=== PATIENT | male | born 1995 | race Caucasian/White ===

== ENCOUNTER 2023-07-06 14:55 | Emergency (ER) | payer OTHER, SELFPAY ==
--- NOTE | ~2023-07-06 | XR_ITS ---
EXAM: XR abdomen/kub 1V DATE: 07/06/2023 16:07 HISTORY: 4mm stone R . COMPARISON: CT abdomen pelvis same date. FINDINGS: Clear lung bases. Normal bowel gas pattern. No organomegaly. Known 4 mm distal right urete ral stone is possibly visualized, projecting over the right side of the sacrum. Delayed right nephrog porter. Mild right caliectasis and pelviectasis. Regional bones and soft tissues normal for age. IMPRESSION: Distal right ureteral stone not as well visualized sonographically, may project over the right sacrum. Mild obstructive uropathy on the right. Reviewed, dictated and finalized at location K. EPRENEUR
--- NOTE | ~2023-07-06 | CT_ITS ---
EXAMINATION: CT abdomen pelvis w con DATE: 07/06/2023 15:41 INDICATION: Right lower quadrant pain. Nausea and vomiting. TECHNIQUE: Computed tomography (CT) of the abdomen and pelvis was performed with 100 cc Omnipaque 350 intravenous contrast. The dose-length product was 461.43 mGy-cm. Automated exposure control and iter ative reconstruction technique were employed. COMPARISON: None. FINDINGS: There is a 4 mm distal right ureteral stone with mild right hydronephrosis. There are nonob structing bilateral renal stones. Lung bases unremarkable. Heart size normal. There is gynecomastia. Fatty infiltration of the liver. T he spleen, pancreas, adrenal glands are unremarkable. Gallbladder is present. There is an appendicoli th. No evidence for acute appendicitis. Nonobstructive bowel gas pattern. No free air or free fluid. No acute osseous abnormality. Levoscoliosis. IMPRESSION: 1. Distal right ureteral stone measuring 4 mm with mild hydronephrosis. 2: Nonobstructing bilateral nephrolithiasis. Reviewed, dictated and finalized at location B. MANAGER
[2023-07-06 15:02] VITALS: BP 142/88; PULSE 65; RESP 18; TEMP 36.4; O2SAT 100
[2023-07-06 15:19] LABS: Basophils Absolute Auto 0.1 K/mm3 (0.0-0.1); Basophils Percent Auto 0.4 % (0.2-1.2); Eosinophils Percent Auto 0.1 % (0-4.4); Immature Granulocyte Absolute 0.03 K/mm3 (0.00-0.031); Immature Granulocyte Percent A 0.2 % (0-0.5); Lymphocytes Absolute Auto 0.88 K/mm3 (0.9-3.2); Lymphocytes Percent Auto 6.3 % (18.3-44.2); Mean Corpuscular HGB Conc 32.7 g/dl (32-36); Mean Corpuscular Hemoglobin 28.4 pg (26-34); Monocytes Absolute Auto 0.5 K/mm3 (0.1-0.6); Monocytes Percent Auto 3.7 % (2.6-8.5); Neutrophils Absolute Auto 12.4 K/mm3 (1.3-6.7); Neutrophils Percent Auto 89.3 % (45.5-73.1); Platelet Count Result 233 k/mm3 (150-375); Red Blood Count 5.63 M/mm3 (4.6-6.20); Red Cell Distribution Width 13.1 % (11.5-14.5); White Blood Count 13.9 K/mm3 (4.5-10.0)
[2023-07-06 15:29] LABS: Alanine Aminotransferase 68 U/L (6-50); Albumin Level 4.9 g/dL (3.5-5.1); Alkaline Phosphatase 80 U/L (38-126); Anion Gap 10 mmol/L (8-16); Aspartate Amino Transferase 36 U/L (17-59); Bilirubin,Total 0.8 mg/dL (0.2-1.3); Blood Urea Nitrogen 14 mg/dL (9-20); Calcium 9.7 mg/dL (8.4-10.2); Carbon Dioxide 27 mmol/L (22-30); Chloride 103 mmol/L (98-107); Estimated Glomerular Filt Rate > 60; Glucose 122 mg/dL (65-110); Lipase 47 U/L (23-300); Potassium 4.2 mmol/L (3.4-5.0); Sodium 140 mmol/L (137-145)
[2023-07-06] MEDS: SODIUM CHLORIDE 0.9% IV 1,000 ML 999 ML IV CONT ×2 (15:44)
[2023-07-06] MEDS: MORPHINE SULFATE (*CRX) 4 MG/ML INJ IV PUSH (15:45)
[2023-07-06] MEDS: ONDANSETRON INJ 4 MG/2 ML VIAL IV PUSH (15:45)
--- NOTE | 2023-07-06 16:19 | ED.ABDPAIN ---
HPI - Abdominal Pain General Chief Complaint: Abdominal Pain Stated Complaint: right flank pain, vomiting Time Seen by Provider: 07/06/23 15:09 Source: patient Mode of arrival: ambulatory Limitations: no limitations History of Present Illness HPI narrative: Patient is a 27-year-old male who presents the ED with report of right flank pain. Patient reports the pain began suddenly around 6:00 a.m. this morning. Pain radiates around to his right lower abdomen. He also reports nausea and vomiting related to the pain, difficulty urinating. He states he has not urinated today. He notes history of kidney stones, and states this current pain feels somewhat similar, but states the abdominal pain is different. Denies urinary issues yesterday, dysuria, hematuria. Denies fevers. Related Data Allergies Allergy/AdvReac Type Severity Reaction Status Date / Time azithromycin Allergy Mild Hives Unverified 07/06/23 15:28 codeine AdvReac Hives Verified 07/06/23 15:28 Review of Systems Review of Systems: CONSTITUTIONAL: Denies fever, chills, or sweats. GASTROINTESTINAL: See HPI. GENITOURINARY: See HPI. SKIN: Denies rash or itching. MUSCULOSKELETAL: See HPI NEUROLOGIC: Denies headache, numbness, or weakness. All systems reviewed & are unremarkable except as noted in HPI and below Exam Narrative: GENERAL: Uncomfortable appearing, well-nourished, in moderate distress due to pain. Actively vomiting on exam. HEAD: Normocephalic, atraumatic. NECK: Supple. No adenopathy, no masses. RESPIRATORY: Airway patent, respirations nonlabored. Clear to auscultation bilaterally, no rales, rhonchi, wheezing. CARDIOVASCULAR: Regular rate and rhythm without murmurs, rubs, or gallops. Radial pulses 2+ and equal bilaterally. ABDOMINAL: Soft, tenderness throughout right lower abdomen, nondistended, no hepatosplenomegaly. Normoactive BS. Positive CVA tenderness on right. MUSCULOSKELETAL: Moves all extremities. No gross deformities. SKIN: Warm, dry, normal color. No rashes. NEURO: A&O X3. Speech clear. Cranial nerves II-XII grossly intact. Steady gait. No ataxic movements. PSYCHIATRIC: Appropriate mood and affect. Normal interaction. Course Vital Signs Vital signs: Vital Signs Temperature 97.5 F L 07/06/23 15:02 Pulse Rate 65 07/06/23 15:02 Respiratory Rate 18 07/06/23 15:02 Blood Pressure 142/88 H 07/06/23 15:02 Pulse Oximetry 100 07/06/23 15:02 Oxygen Delivery Room Air 07/06/23 15:02 Temperature 97.5 F L 07/06/23 15:02 Pulse Rate 65 07/06/23 15:02 Respiratory Rate 18 07/06/23 15:02 Blood Pressure 142/88 H 07/06/23 15:02 Pulse Oximetry 100 07/06/23 15:02 Oxygen Delivery Room Air 07/06/23 15:02 MDM - Abdominal Pain MDM Narrative Medical decision making narrative: Patient presented to ED with R flank and abdominal pain, N/V onset this a.m. Vital signs stable upon arrival, the patient ill appearing, actively vomiting. Fluids, pain and nausea medicine ordered. CBC leukocytosis of 13.9, likely in part reactive. CMP unremarkable. Stable kidney function. UA with blood, no evidence for infection. CT scan of pelvis obtained it showed 4 mm right distal ureter stone. This is consistent with patient's clinical picture, symptoms, history of previous stones. CT did show an appendicolith, but no evidence for acute appendicitis. KUB obtained, but does not definitively visualize stone. Patient updated on lab and imaging findings, plan for discharge home with outpatient urology follow-up. He is feeling significantly better with supportive therapy. Pain improved. Able to tolerate p.o. intake. Given strict return precautions. Patient discharged in stable condition. Medical Records Attestation: I reviewed the patient's medical records. Lab Data Attestation: I reviewed the patient's lab results. 07/06/23 15:15 07/06/23 15:15 Labs: Lab Results 07/06/23 07/06/23 Range/Unit
[2023-07-06] MEDS: KETOROLAC 30 MG/ML VIAL (*BKC) IV PUSH (16:56)
[2023-07-06 17:08] LABS: Appearance Urine Clear (Clear); Bacteria Urine None Seen /hpf; Bilirubin Urine Negative (Negative); Blood Urine 3+ (Negative); Color Urine Yellow (Yellow); Glucose Urine UA Negative (Negative); Ketones Urine Trace mg/dL (Negative); Leukocyte Esterase Ur Negative LEU/UL (Negative); Nitrate Urine Negative (Negative); Non Pathogenic Casts 0-2; Protein Urine Trace mg/dL (Negative); RBC Urine >100 /hpf (0-2); Squamous Epithelial Cell Urine None seen /hpf (Few); Urobilinogen Urine 0.2 mg/dL (<2.0); WBC Urine 0-5 /hpf
[2023-07-06 17:09] LABS: Add Urine Microscopic? YES; Specific Grav Ur 1.075 (1.001-1.035)
[2023-07-06 17:28] VITALS: BP 134/76; PULSE 95; RESP 18; O2SAT 100
[2023-07-06] MEDS: TAMSULOSIN HCL 0.4 MG CAPSULE PO (17:28)
== END 2023-07-06 17:47 | disposition home or self-care (01) ==
PROVIDERS: Emergency Provider Physician Assistant
DX: N13.2 Hydronephrosis with renal and ureteral calculous obstruction (principal)
CPT/HCPCS: 36415; 74018; 74177; 80053; 81001; 83690; 85025; 96361; 96374; 96375; 99284; A9270; J1885; J2270; J2405; J7030; Q9967